=== PATIENT | female | born 2000 | race Caucasian/White ===

== ENCOUNTER 2024-02-12 19:03 | Emergency (ER) | payer OTHER, SELFPAY ==
[2024-02-12 19:07] VITALS: BP 117/76
[2024-02-12 19:32] LABS: HCG, Urine Qualitative Screen Negative
[2024-02-12 19:39] VITALS: BMI 21.5
[2024-02-12 19:42] LABS: Amphetamines Negative (Negative); Barbiturates Negative (Negative); Benzodiazepines Negative (Negative); Buprenorphine Negative (Negative); Cocaine Negative (Negative); Marijuana Positive (Negative); Methadone Negative (Negative); Methamphetamines Negative (Negative); Opiates Negative (Negative); Phencyclidine Negative (Negative); Tricyclic Antidepressants Negative (Negative)
--- NOTE | 2024-02-12 19:53 | ED.GENMED ---
History of Present Illness
General
Chief Complaint: Head Injury
Source: patient and family (father)
Exam Limitations: none
Time Seen by Provider: 02/12/24 19:23
Nursing documentation reviewed up to this point in time: agreed with
History of Present Illness
History of Present Illness:
Father states they were at a block [employer]. Patient was wallking with friend of father and suddenly felt like she needed to sit down. Father states she passed out. Brief LOC. Hit head on floor. Patient is crying hysterically. Does not
recall any events from today. Brought to ED by father for eval.
Past History
Past History
ED Past Medical History: Psychiatric
ED Past Surgical History: None
Social History
Tobacco: Non-smoker
Alcohol: None
Drug: Marijuana (last used yesterday)
Review of Systems
Review of Systems
Allergies reviewed?: Yes
All Other Systems: ROS reviewed and negative except as documented in HPI and ROS
Constitutional: Reports no symptoms
EENT: Reports no symptoms
Respiratory: Reports no symptoms
Cardiac: Reports syncope (this afternoon)
ABD/GI: Reports no symptoms
: Reports no symptoms
Musculoskeletal: Reports no symptoms
Skin: Reports no symptoms
Neurological: Reports no symptoms
Psychiatric: Reports other (very anxious, crying)
Course
Orders/Labs/Results
Orders:
Orders
02/12/24 19:11
CT Head W/o Iv Contrast Urgent
Comment:
Reason For Exam: fall w/head strike and amnesia
02/12/24 19:19
HCG, Urine Qualitative Screen Urgent
Date Specimen was Collected: 02/12/24
Time Specimen was Collected: 19:19
Urine Drug Abuse Screen Urgent
Date Specimen was Collected: 02/12/24
Time Specimen was Collected: 19:19
Test Result ONCE
02/12/24 19:24
Add On- LAB Urgent
Tests Added?: urine drug abuse screen
02/12/24 19:37
Alcohol Urgent
Comprehensive Metabolic Panel Urgent
Comment: ADD ON
02/12/24 19:40
Add On- LAB Urgent
Tests Added?: CMP
02/12/24 19:57
Electrocardiogram (*1) Urgent
Reason for Study: Fatigue / Weakness
EKG- Treatment ONCE
02/12/24 20:20
Orthostatic VS- Treatment ONCE
Abnormal Lab Results
02/12/24 02/12/24
19:19 19:37
Glucose 104 H mg/dl
(70-99)
U Marijuana (THC) Screen Positive H
(Negative)
02/12/24 19:37
Vital Signs
Initial and Last Documented VS:
Initial Vital Signs
Temp Pulse Resp BP Pulse Ox
98.2 F 74 16 117/76 99
02/12/24 19:07 02/12/24 19:07 02/12/24 19:07 02/12/24 19:07 02/12/24 19:07
Last Documented Vital Signs
Temp Pulse Resp BP Pulse Ox
98.2 F 74 16 117/76 99
02/12/24 19:07 02/12/24 19:07 02/12/24 19:07 02/12/24 19:07 02/12/24 19:07
MDM/Problems Addressed
Differential Diagnosis Includes:
Patient to ED for eval after syncopal event earlier today. She told her father that she hit her hand on something, felt a tingling sensation and then passed out. Suspect vasovagal response. SHe was initially very anxious, crying, unable to recall
any events related to today. Now much calmer. Labs reviewed. CHemistry normal. UDS +for marijuana. She does admit to smoking yesterday. Denies alcohol use today. Denies any other drug use. Head CT neg. Neuro exam normal. EKG reviewd, NSR.
Orthostatics normal. SHe is now alert and cooperative. Will discharge home with father. Recommend follow up with PCP on wednesday. Given instructions on s/s to return to ED and she is agreeable to plan.
ED Attending Note
-
Portions of this chart may have been created with voice recognition software.� Occasional wrong word or��sound alike� substitutions may have occurred due to the inherent limitations of voice recognition software.
Discharge Plan
Departure
Patient Disposition: Home (Routine Discharge)
Date of Disposition: 02/12/24
Time of Disposition: 20:21
Patient with high blood pressure during this ER visit?: No
Condition: Good
Covid-19: Not Applicable
Discharge Problem:
Syncope
Instructions: Syncope (fainting), Concussion, Adult (DC), Head Injury in Adults (DC)
Prescriptions:
No Action
No Current Medications
amoxicillin 250 MG/5 ML suspension for reconstitution
500 mg PO TID Qty: 300 0RF
Stand Alone Forms: Return to Work
Activity Restrictions/Additional Instructions:
Follow up with your family doctor.
Interventions
Interventions:
*Risk Screen - Suicide Last Done: 02/12/24 19:04
*General Assessment Last Done: 02/12/24 19:39
*Neglect/Abuse Screening Last Done: 02/12/24 19:07
Discharge Date and Time
Print Language: CZECH
[2024-02-12 20:04] LABS: ALT (SGPT) 13 U/L (0-35); AST (SGOT) 20 U/L (14-36); Albumin 4.7 g/dl (3.5-5.0); Alcohol None Detected; Alkaline Phosphatase 82 U/L (38-126); Blood Urea Nitrogen 17 mg/dl (7-17); Calcium 9.8 mg/dl (8.4-10.2); Carbon Dioxide 22 mmol/L (22-30); Chloride 101 mmol/L (98-107); Estimated Creatinine Clearance 109 ml/min; Glucose 104 mg/dl (70-99); Potassium 3.8 mmol/L (3.5-5.1); Sodium 138 mmol/L (135-145); Total Bilirubin 0.7 mg/dl (0.2-1.3); Total Protein 7.1 g/dl (6.3-8.2); eGFR > 60.00
[2024-02-12 20:20] VITALS: BP 106/72; BP 112/70; BP 116/79; PULSE 70; PULSE 73; PULSE 82
== END 2024-02-12 20:48 | disposition home or self-care (01) ==
LOC: EMR 19:03
PROVIDERS: Nurse Practitioner; EMERGENCY PHYSICIAN Student in an Organized Health Care Education/Training Program; FAMILY PHYSICIAN Family Medicine
DX: R55 Syncope and collapse (principal); S09.90XA Unspecified injury of head, initial encounter; R20.2 Paresthesia of skin; W19.XXXA Unspecified fall, initial encounter; F12.90 Cannabis use, unspecified, uncomplicated; Z91.018 Allergy to other foods
CPT/HCPCS: 99284; 70450; 80053; 80306; 81025; 82077; 93005

== ENCOUNTER → 2024-04-07 10:03 | Outpatient (REF) | payer OTHER, SELFPAY | LOC: HWRAD 10:03 | PROVIDERS: ATTENDING PHYSICIAN Nurse Practitioner Family | DX: R59.9 Enlarged lymph nodes, unspecified (principal) | CPT/HCPCS: 76536 ==

== ENCOUNTER → 2024-08-15 14:36 | Outpatient (REF) | payer OTHER, SELFPAY | LOC: MRI 3T 14:36 | PROVIDERS: ATTENDING PHYSICIAN Nurse Practitioner Family | DX: R55 Syncope and collapse (principal) | CPT/HCPCS: 70553; A9575 ==

== ENCOUNTER → 2025-01-18 07:19 | Outpatient (REF) | payer OTHER, SELFPAY | LOC: RAD 07:19 | PROVIDERS: ATTENDING PHYSICIAN Nurse Practitioner Family | DX: R59.9 Enlarged lymph nodes, unspecified (principal) | CPT/HCPCS: 70491; Q9967 ==